=== PATIENT | male | born 1940 | race Caucasian/White ===

== ENCOUNTER 2023-07-26 11:06 | Emergency (ER) | payer MEDICARE, OTHER ==
[~2023-07-26] VITALS: Ht 185.4 cm; Wt 90.7 kg
== END 2023-07-26 13:13 | disposition home or self-care (01) ==
LOC: ED 11:06
DX: T63.461A Toxic effect of venom of wasps, accidental (unintentional), initial encounter (principal); Z88.8 Allergy status to other drugs, medicaments and biological substances; Y92.89 Other specified places as the place of occurrence of the external cause

== ENCOUNTER 2023-08-09 08:04 | Emergency (ER) | payer MEDICARE, OTHER ==
[~2023-08-09] VITALS: Ht 182.8 cm
[2023-08-09] MEDS ORDERED: PANTOPRAZOLE SO40 MG PO (08:29)
[2023-08-09] MEDS ORDERED: ROPINIROLE HYDRO1 MG PO (08:29)
[2023-08-09] MEDS ORDERED: NEURONTIN300 MG PO (08:30)
[2023-08-09] MEDS ORDERED: CIPRODEX 0.3%-7.5 ML OT (09:55)
== END 2023-08-09 10:03 | disposition home or self-care (01) ==
LOC: ED 08:04
DX: H60.92 Unspecified otitis externa, left ear (principal); H61.22 Impacted cerumen, left ear; Z88.8 Allergy status to other drugs, medicaments and biological substances; Z79.899 Other long term (current) drug therapy